=== PATIENT | male | born 2000 | race Caucasian/White ===

== ENCOUNTER 2021-12-23 09:16 | Emergency (ER) | payer SELFPAY ==
--- NOTE | 2021-12-23 09:46 | NUR ---
Multiple calls. NO response Per Zahra from [facility] "he Left"
== END 2021-12-23 09:47 | disposition home or self-care (01) ==
LOC: ER 09:19
DX: Z53.21 Procedure and treatment not carried out due to patient leaving prior to being seen by health care provider (principal)